=== PATIENT | male | born 1990 | race Caucasian/White ===

== ENCOUNTER 2019-08-13 23:47 | Emergency (ER) | payer BC, OTHER ==
--- NOTE | 2019-08-13 23:58 | ED ---
GI/ HPI - HPI Summary HPI Summary: 29 year old M presenting to [facility] with a chief complaint of sudden onset nausea since approximately 11:00 this morning after eating 1 day old pakistani food and vomiting onset at approximately 20:00. He states that he had an episode of vomiting blood and near syncope. Patient also reports rhinorrhea, lightheadedness, and diaphoresis. The patient rates the pain 0/10 in severity. Symptoms aggravated by nothing. Symptoms alleviated by nothing. Patient denies dysuria or hematuria. The patient's vital signs en route were fairly stable with a blood pressure of 104 systolic. Medication list reviewed. Allergy list reviewed. - History of Current Complaint Chief Complaint: EDNauseaVomitDiarrh Time Seen by Provider: 08/13/19 23:49 Stated Complaint: NAUSEA PER EMS Hx Obtained From: Patient, EMS Onset/Duration: Started Hours Ago Timing: Constant Severity: Mild Current Severity: None Pain Intensity: 0 Associated Signs and Symptoms: Positive: Nausea, Vomiting, Diaphoresis, Lightheadedness, Other: - Vomiting blood; near syncope; rhinorrhea. Negative: Hematuria, Dysuria Aggravating Factor(s): Nothing Alleviating Factor(s): Nothing - Allergy/Home Medications Allergies/Adverse Reactions: Allergies Allergy/AdvReac Type Severity Reaction Status Date / Time No Known Allergies Allergy Verified 11/16/15 11:29 Home Medications: Home Medications Ondansetron TAB* [Zofran 4 MG Tab*] 4 mg PO Q6H PRN #15 tab 08/14/19 [Rx] PMH/Surg Hx/FS Hx/Imm Hx Endocrine/Hematology History: Denies: Hx Diabetes Respiratory History: Reports: Hx Asthma Opthamlomology History: Denies: Hx Legally Blind - Surgical History Surgical History: Yes Surgery Procedure, Year, and Place: testicular surgery as a child Infectious Disease History: No Infectious Disease History: Denies: History Other Infectious Disease, Traveled Outside the [place] in Last 30 Days - Family History Known Family History: Negative: Diabetes, Renal Disease - Social History Alcohol Use: None Hx Substance Use: No Substance Use Type: Reports: None Hx Tobacco Use: No Smoking Status (MU): Never Smoked Tobacco Review of Systems Positive: Skin Diaphoresis Positive: Nasal Discharge Positive: Vomiting, Nausea, Other - Vomiting blood Negative: dysuria, hematuria Neurological/Mental Status: Other - Lightheadedness; near syncope All Other Systems Reviewed And Are Negative: Yes Physical Exam - Summary Physical Exam Summary: Constitutional: Well-developed, Well-nourished, Alert. (-) Distressed; appears uncomfortable. Skin: Warm, Dry HENT: Normocephalic; Atraumatic Eyes: Conjunctiva normal Neck: Musculoskeletal ROM normal neck. (-) JVD, (-) Stridor, (-) Tracheal deviation Cardio: Rhythm regular, rate normal, Heart sounds normal; Intact distal pulses; The pedal pulses are 2+ and symmetric. Radial pulses are 2+ and symmetric. (-) Murmur Pulmonary/Chest wall: Effort normal. (-) Respiratory distress, (-) Wheezes, (-) Rales Abd: Soft, (-) tenderness, (-) Distension, (-) Guarding, (-) Rebound Musculoskeletal: (-) Edema Lymph: (-) Cervical adenopathy Neuro: Alert, Oriented x3 Psych: Mood and affect Normal Triage Information Reviewed: Yes Vital Signs On Initial Exam: Initial Vitals Temp Pulse Resp BP Pulse Ox 97.8 F 93 18 120/80 99 08/13/19 23:49 08/13/19 23:49 08/13/19 23:49 08/13/19 23:49 08/13/19 23:49 Vital Signs Reviewed: Yes Procedures - Sedation Patient Received Moderate/Deep Sedation with Procedure: No Diagnostics - Vital Signs Vital Signs Temp Pulse Resp BP Pulse Ox 08/13/19 23:49 97.8 F 93 18 120/80 99 - Laboratory Result Diagrams: 08/14/19 00:19 08/14/19 00:19 Lab Statement: Any lab studies that have been ordered have been reviewed, and results considered in the medical decision making process. Re-Evaluation - Re-Evaluation First Eval Re-Evaluation Time: 03:30 Change: Improved Comment: The patient feels improved, will give him water. GIGU Course/Dx - Course Course Of Treatment: 29 year old M presenting to [facility] with a chief complaint of suddenly onset nausea since approximately 11:00 this morning after eating 1 day old pakistani food and vomiting onset at approximately 20:00. He states that he had an episode of vomiting blood and near syncope. Patient also reports rhinorrhea, lightheadedness, and diaphoresis. Physical exam findings: Appears uncomfortable. Laboratory results with no significant abnormalities except for WBC of 16.6, Absolute neuts of 13.8, absolute monos of 0.9, glucose of 146, lactic acid of 2.2, alkaline phosphatase of 31, and lipase of <10. In the ED course, the patient was given normal saline and ondansetron. Patient will be discharged with follow up from [facility] nad Rx for Zofran. The patient is agreeable with this plan. - Diagnoses Provider Diagnoses: Nausea, vomiting and diarrhea Discharge ED - Sign-Out/Discharge Documenting (check all that apply): Patient Departure - Discharge - Discharge Plan Condition: Stable Disposition: HOME Prescriptions: Ondansetron TAB* [Zofran 4 MG Tab*] 4 mg PO Q6H PRN #15 tab PRN Reason: Nausea Patient Education Materials: Acute Nausea and Vomiting (ED), Acute Diarrhea (ED ) Print Language: WELSH Referrals: [facility] [Outside] No Primary Care Phys,NOPCP [Primary Care Provider] - - Billing Disposition and Condition Condition: STABLE Disposition: Home - Attestation Statements Document Initiated by Scribe: Yes Documenting Scribe: Gemma Arriaga Provider For Whom Alibe is Documenting (Include Credential): Luly Bruner MD Scribe Attestation: I, Gemma Arriaga, scribed for Luly Briseno MD on 08/14/19 at 0702. Scribe Documentation Reviewed: Yes Provider Attestation: The documentation as recorded by the scribromina, Gemma Arriaga accurately reflects the service I personally performed and the decisions made by me, Luly Briseno MD Status of Scribe Document: Viewed
[2019-08-14] MEDS ORDERED: Ondansetron INJ* 2 MG/ML VIAL IV ONE (00:03)
[2019-08-14] MEDS ORDERED: NS 0.9% 1000 ML** 1,000 ML IV ONE (00:03)
[2019-08-14 00:25] LABS: ABS Basophils 0.1 10^3/ul (0-0.2); ABS Eosinophils 0.1 10^3/ul (0-0.6); ABS Lymphocytes 1.6 10^3/ul (1.0-4.8); ABS Monocytes 0.9 10^3/ul (0-0.8); ABS Neutrophils 13.8 10^3/ul (1.5-7.7); Eosinophil % 0.5 %; Hematocrit 47 % (42-52); Hemoglobin 16.2 g/dL (14.0-18.0); Lymphocyte % 9.7 %; Mean Corpuscular HGB Conc 34 g/dL (31-36); Mean Corpuscular Hemoglobin 31 pg (27-31); Mean Corpuscular Volume 89 fL (80-94); Mean Platelet Volume 7.9 fL (7.4-10.4); Nucleated Red Blood Cells % 0.1; Platelet Count 299 10^3/uL (150-450); Red Blood Count 5.29 10^6 /uL (4.18-5.48); Red Cell Distribution Width 13 % (10-15); White Blood Count 16.6 10^3/uL (3.5-10.8)
[2019-08-14 00:41] LABS: ALT 20 U/L (7-52); AST 19 U/L (13-39); Albumin 5.1 g/dL (3.2-5.2); Albumin/Globulin Ratio 1.8 (1-3); Alkaline Phosphatase 31 U/L (34-104); Anion Gap 11 mmol/L (2-11); BUN/Creatinine Ratio 14.7 (8-20); Blood Urea Nitrogen 16 mg/dL (6-24); CO2 Carbon Dioxide 27 mmol/L (22-32); Chloride 103 mmol/L (101-111); EGFR African American 95.5 (>60); EGFR Non-African American 78.9 (>60); Globulin 2.9 g/dL (2-4); Glucose 146 mg/dL (70-100); Potassium 4.3 mmol/L (3.5-5.0); Sodium 141 mmol/L (135-145)
[2019-08-14] MEDS ORDERED: NS 0.9% 1000 ML** 2,520 ML IV ONE (00:45)
--- OUTSIDE RECORDS SUMMARY | 2019-08-14 00:58 | XMS REPORT | Continuity of Care Document ---
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 Medicine Problems Description No Information Available Social History Type Date Description Comments Sex Unknown Tobacco Use Start: Unknown Nonsmoker ETOH Use Occasional Tobacco Use Start: Unknown Nonsmoker Smoking Status Reviewed: 07/03/19 Nonsmoker Exercise Type/Frequency biking Allergies, Adverse Reactions, Alerts Description No Known Drug Allergies Medications Active Medications SIG Qnty Indications Ordering Provider Date Amoxicillin/Clavulana 1 by mouth twice 20tabs J01.90 Renetta Santamaria 07/03/2019 te Potassium a day x 10 days JAXON Emmanuel 875-125mg Tablets Tylenol Extra 1-2 tab by mouth Unknown Strength as needed 500mg Tablets Vicks Dayquil Cold & Unknown Flu Capsules History Medications No Active Medications Unknown 03/16/2019 - 07/03/2019 Immunizations CPT Code Status Date Vaccine Lot # [id number] Given 04/01/2014 DO Not Use Split Influenza Virus Vaccine Vital Signs Date Vital Result Comment 07/03/2019 11:35am BP Systolic 118 mmHg BP Diastolic 84 mmHg Heart Rate 92 /min Body Temperature 98.1 F Respiratory Rate 16 /min Height 69.5 inches 5'9.50" meaasured 10/31/13 Weight 184.00 lb BMI (Body Mass Index) 26.8 kg/m2 03/16/2019 10:31am BP Systolic 122 mmHg BP Diastolic 84 mmHg Heart Rate 66 /min Body Temperature 98.2 F Respiratory Rate 16 /min Height 69.5 inches 5'9.50" meaasured 10/31/13 Weight 181.00 lb BMI (Body Mass Index) 26.3 kg/m2 Results Test Acquired Date Facility Test Result H/L Range Note Laboratory test 03/16/2019 [facility] Quickstrep negative Negative finding (607)- - Procedures Date Code Description Status 07/03/2019 73636 Remove Impact Cerumen Irrigati Completed Medical Devices Description No Information Available Encounters Type Date Location Provider Dx Diagnosis Office Visit 03/16/2019 Main Office Anna Garduno.Lizbeth Acute upper 10:30a [employer] respiratory infection, unspecified J02.9 Acute pharyngitis, unspecified Assessments Date Code Description Provider 07/03/2019 J01.90 Acute sinusitis, unspecified Renetta Emmanuel NP 07/03/2019 H61.23 Impacted cerumen, bilateral Renetta Emmanuel NP 03/16/2019 J06.9 Acute upper respiratory infection, RAE GardunoP unspecified 03/16/2019 J02.9 Acute pharyngitis, unspecified BC Garduno Plan of Treatment 07/03/2019 - Renetta Emmanuel NPJ01.90 Acute sinusitis, unspecifiedNew Medication:Amoxicillin/Clavulanate Potassium 875-125 mg - 1 by mouth twice a day x 10 daysComments:Supportive care: 1) Make sure you are resting. This is the only way the body can take the energy it needs to heal itself. 2) Fluids, fluids, fluids! - Drink a lot of water or other caffeine free, clearliquids - Use a humidifier in your room at night or perform steam inhalations (20-30 mins ) three times a day- If tolerated, use a saline nasal spray to help clear out your sinuses 3) Cough and blow it out, the more you can get out of your system the better4) For throat pain: try using an adult dose ofchildren's Tylenol to help coat your throat and give you some pain relief. 5) Sleep with the head ofthe bed up6) Avoid cigarette smoke, caffeine, alcoholWe expect you to begin to feel better in 48-72 hours after starting antibiotic therapy, if you are not improving or begin to get worse, please contact the office to be seen again.H61.23 Impacted cerumen, bilateralComments:Warm water irrigation successful. Patient tolerated well. Discussed not to use Q tips, rather use a wash cloth around outside of ears. Avoid excessive use of headphones that enter ear canal, if using for long time use over ear type. Debrox as needed for excessive ear wax.AllComments:Medication Management Patient Understands medications he 's taking? Yes No Are there Barriers to Adherence? Yes No Has the patient been asked about herbal supplements and therapies, andOTC meds? Yes No Care Plan1. Patient has been queried about patient's goals/preferences and functional/lifestyle goals at relevant visits. If relevant, describe: na2. Treatment goals as explained to the patient: above3. Are there barriers to meeting treatment goals? Yes No If Yes, please describe:4. Self-Management goals as described to the patient: Yes NoAs always, we strongly encourage a healthy diet and making physical activity a part of your every day life. If you have questions about how or where to start , please contact the office.Follow up:Please contact front office staff to set up the online patient portal Functional Status Description No Information Available Mental Status Description No Information Available Referrals Description No Information Available
[2019-08-14] MEDS ORDERED: O ndansetron ODT 4MG 5TAB PRPK 4 MG PAK PO ONE (04:04)
[2019-08-14 04:22] VITALS: BP 101/60
== END 2019-08-14 04:21 | disposition home or self-care (01) ==
LOC: ED 23:47
DX: R11.2 Nausea with vomiting, unspecified (principal); R19.7 Diarrhea, unspecified; J34.89 Other specified disorders of nose and nasal sinuses; R42 Dizziness and giddiness; R61 Generalized hyperhidrosis
CPT/HCPCS: 36415; 80053; 83605; 83690; 85025; 96361; 96374; 99283; A9270-GY; J2405